=== PATIENT | male | born 2000 | race Caucasian/White ===

== ENCOUNTER → 2020-03-18 | Emergency (ER) | payer OTHER ==
[~2020-03-18] VITALS: Ht 175.3 cm; Wt 72.7 kg
[2020-03-18 21:03] VITALS: BP 117/82; PULSE 115; TEMP 98.6
== END ==
LOC: COL.ER 20:56
DX: S53.105A Unspecified dislocation of left ulnohumeral joint, initial encounter (principal); W19.XXXA Unspecified fall, initial encounter

== ENCOUNTER → 2020-04-19 | Outpatient (CLI) | payer OTHER | LOC: COL.RAD 08:24 | DX: S40.022A Contusion of left upper arm, initial encounter (principal); S50.12XA Contusion of left forearm, initial encounter; S46.212A Strain of muscle, fascia and tendon of other parts of biceps, left arm, initial encounter; S56.212A Strain of other flexor muscle, fascia and tendon at forearm level, left arm, initial encounter; S56.512A Strain of other extensor muscle, fascia and tendon at forearm level, left arm, initial encounter; S53.449A Ulnar collateral ligament sprain of unspecified elbow, initial encounter | CPT/HCPCS: A9585; Q9967 ==